=== PATIENT | male | born 1950 | race Caucasian/White ===

== ENCOUNTER → 2016-11-19 | Day surgery (SDC) | payer MEDICARE, OTHER ==
[2016-11-19] VITALS (7 sets, daily range): BP systolic 154–170; BP diastolic 73–93; PULSE 80–91; RESP 14–18; O2SAT 96–100
[~2016-11-19] VITALS: Ht 200.7 cm; Wt 101.3 kg
[~2016-11-19] MED LIST: AMMO385C5 TP; Atropine 0.4 mg/mL Inj IVPUSH PRN; Bupivacaine-MPF 0.25% 30 mL Inj INFILTRATE ONE; CeFAZolin 2 Gm/50 mL D5W Duplex Bag IV ONE; CeFAZolin 2 Gm/50 mL D5W IV Premix IV ONE; Dexamethasone 4 mg/mL Inj ONE; EPHEDrine Sulfate 50 mg/mL Inj IVPUSH PRN; HYDROmorphone 1 mg/mL Inj IVPUSH PRN; Labetalol 5 mg/mL 20 mL Inj IV PRN; Lactated Ringer's 1,000 ML IV ONE; Lactated Ringer's 1,000 ML IV SCH; Lactated Ringer's 500 ML IV PRN; METF500T4 PO; MULT-1018 PO; MetoCLOpramide 5 mg/mL 2 mL Inj IVPUSH PRN; MetoCLOpramide 5 mg/mL 2 mL Inj ONE; OXYC1TAB24 PO; Ondansetron 2 mg/mL 2 mL Inj IVPUSH PRN; Ondansetron 2 mg/mL 2 mL Inj ONE; Phenylephrine 10,000 mCg/mL Inj IVPUSH PRN; Phenylephrine/NS 100 mCg/mL 10 mL Syringe IVPUSH ONE; Propofol 10,000 mCg/mL 20 mL Inj ONE; Rocuronium 10 mg/mL 5 mL Inj ONE; fentaNYL-PF 50 mCg/mL 2 mL Inj IVPUSH PRN; fentaNYL-PF 50 mCg/mL 2 mL Inj ONE; hydrOXYzine Pamoate 25 mg Capsule PO PRN; oxyCODONE-Acetamin 5-325 mg Tablet PO PRN
[2016-11-19] MEDS: Lactated Ringer's 1,000 ML IV SCH ×2 (14:54→16:32)
--- NOTE | 2016-11-19 18:20 | PCM.HPANE ---
Patient Data Surgeon Admitting Provider: Attending Provider:Antonio Sherman DO Primary Care Physician:Jim Other Provider:Otis Finn Anesthesia Reason for Visit Fractured Clavicle Ht/WT & BMI Height (Feet): 6 Height (Inches): 7 Weight (Kilograms): 101.3 Body Mass Index 25.00 Allergies Coded Allergies: No Known Allergies (Unverified , 11/19/16) Past Anesthesia History Anesthesia History: Denies:: Abnormal Airway, Anesthesia Reactions, Difficult Intubation, Fam Anesthesia Reaction, Fam Malignant Hypertherm, Malignant Hyperthermia Diabetes History Hx Diabetes?: Yes Type of Diabetes: Type II Glycemic Control: Oral Medication Current Bedside Blood Glucose: 171 MRSA MRSA: No Medications Reported Medications Multivitamin (Multi Vitamin Daily)1 Each Tablet1 Each PO DAILY 30 Days Ref 0 11/18/16 oxyCODONE-Acetaminophen 5-325 mg 1 Each Tablet1 Tab PO Q4H PRN For Pain Ref 0 11/18/16 Metformin 500 Mg [id number] Mg PO BID Ref 0 11/18/16 Ammonium Lactate 140 Gm Cream..g.140 Gm TP DAILY 11/18/16 History History of ENT Problems?: No HEENT History: Denies:: Abnormal Airway Difficult Intubation Dysphagia Hearing Problem Sinus Problem TMJ Denture Type: None Teeth Condition: Within Normal Limits Hx of Heart Problems?: No Cardiovascular History: Denies:: AICD Abdominal Aortic Aneurism Atrial Fibrillation Cardiac Surgery Chest Pain Congestive Heart Failure Coronary Artery Disease Edema Heart Murmur Hypertension Irregular Heartbeat Pacemaker Peripheral Vascular Rheumatic Fever Thrombophlebitis Valvular Heart Disease Hx of Respiratory Problem?: No Respiratory History: Denies:: Asthma COPD Chest Surgery Cough Dyspnea Hemoptysis Pneumonia Pulmonary Embolism Tuberculosis Use of C-PAP Machine Use of Inhalers / NEBS Hx Neurologic Problems?: No Neurological History: Denies:: Alzheimer's Disease CVA Dementia Dizziness Headaches Multiple Sclerosis Parkinson's Disease Seizures TIA Hx of GI Problems?: No Other GI Pertinent History: Umbilical hernia repair Hx of Problems?: No Genitourinary History: Denies:: HX of Hemodialysis HX of Peritoneal Dialysis: No Male Hx: Positive for:: Testicular Surgery (Vasectomy) Denies:: Prostate Problems Scrotal Mass Skin History: Denies:: History Skin Disorders? Pressure Ulcers Hx Musculoskeletal Problems?: Yes Musculoskeletal History: Positive for:: Musculoskeletal Trauma (fall off ladder 11/18/16 fx clavicle) Denies:: Back Injury Degenerative Joint Fibromyalgia Joint Replacement Osteoarthritis Hx of Psycho/Social Problems?: No Hx Surgeries?: No Other History: Positive for:: Hospitalization ([facility] while skiing 40 yrs ago no residule) Denies:: Cancer Endocrine Disease Thyroid Disease History Blood Transfusions: Positive for:: Accept Blood Products? Denies:: Blood Transfusions Hx Diabetes: YesBedside Blood Glucose: 171 Hx Alcohol Use: YesAlcoholic Drinks Per Day: 3-4 glasses a wine a dayHx Substance Use: No Stop/Bang S-Snoring: Do You Snore Loudly: No T-Tired: feel tired, fatigued: No O-Obsered: Observed not breath: No P-Blood Pressure: treated: No B- Body Mass Index > 35 kg/m2: No A- Age over 50: Yes N- Neck Large Circumference: No G- Gender Male: Yes UMER Total Score: 2 Risk Assessment Category Category 1A: Patient has history of documented sleep apnea, and HAS NOT received any narcotic, sedative or anesthesia administration during this stay. Category 1B: Patient has history of documented sleep apnea, and HAS received any narcotic , sedative or anesthesia administration during this stay Category 2: Patient has SUSPECTED Obstructive Sleep Apnea, and HAS received any narcotic , sedative or anesthesia administration during this stay. Category 3: Patient has SUSPECTED Obstructive Sleep Apnea and HAS NOT received narcotic, sedative or anesthesia administration during this stay. Category 4: Outpatient in Procedural Areas with known sleep apnea or who screen positive for High Risk via the STOP/BANG questionnaire. Exam Exam Vital Signs Vital Signs Date Time Temp Pulse Resp B/P Pulse Ox O2 Delivery O2 Flow Rate FiO2 11/19/16 14:30 36.3 80 15 159/73 98 Room Air General Appearance: Alert, Oriented X3, Cooperative, No Acute Distress HEENT/AIRWAY: MP 2, Neck Movement (F), Mouth Opening (3 FBMO) Lungs: Clear to Auscultation, Normal Air Movement Heart: Exam Unremarkable, Regular Rate/Rhythm, No Murmurs/Rubs/Gallops Meds/Labs/Diagnostics Admission Meds Current Medications Lactated Ringer's (Lr) 1,000 ml @ 80 mls/hr [id number] IV Last administered on t 14:54; Start 11/19/16 at 13:50 Bedside Blood Glucose: 171 Plan Impression Patient chart reviewed, patient interviewed and anesthestic plan with risks, benefits, and alternatives discussed, and informed consent obtained. NPO per Anesth. Guidelines: Yes ASA Physical Status: ASA2 Mod Systemic Disease Anesthetic Plan: GA, Regional Block (left interscalene block discussed with associated risks - see record. AQA. Consent signed.) Bene/Risks/Altern/Consents: Yes HP Complete Prior to Induction: Yes Antonio Franklin MD Nov 19, 2016 15:45
--- NOTE | 2016-11-19 19:12 | PCM.ANEP1 ---
Post Anesthesia PACU Phase 1 Assessment Vital Signs Vital Signs Date Time Temp Pulse Resp B/P Pulse Ox O2 Delivery O2 Flow Rate FiO2 11/19/16 14:30 36.3 80 15 159/73 98 Room Air Anesthetic Administered: GA, Regional Block (LEFT SHOULDER BLOCK) Level of Alertness: Awake, talking MUHAMMAD's with Equal Strength: Yes Pain: No Nausea or Vomiting: No CV Function & Hydration Stable: Yes Airway Device: N/A Oxygen Delivery: Simple Mask Lungs: Clear to Auscultation, Normal Air Movement Dermatome Level: Full Sensation PACU Phase 2 Assessment Complications: No Follow up Care: N/A Patient Instructions Provided: N/A Antonio Franklin MD Nov 19, 2016 19:12
--- NOTE | 2016-11-19 19:47 | OP ---
[address] [address] OPERATIVE REPORT PATIENT: ALEAH YOUNGER : 1950 MR#: [id number] ADMIT: 11/19/2016 JOB ID: [id number] DATE OF SURGERY: 11/19/2016 PREOPERATIVE DIAGNOSIS(ES): Left distal clavicle fracture with acromioclavicular (AC) joint disruption. POSTOPERATIVE DIAGNOSIS(ES): Left distal clavicle fracture with acromioclavicular (AC) joint disruption. PROCEDURE: Left distal clavicle open reduction and internal fixation with acromioclavicular joint reconstruction. SURGEON: Antonio Sherman DO [employer] AGENT: Christina Ventura PA-C INDICATION: The patient is a 66-year-old male who fell about five feet when he missed a step on a ladder, sustaining a left comminuted distal clavicle fracture with AC disruption. We discussed treatment options for this and he wished to proceed with open reduction, internal fixation, and AC reconstruction. We discussed the risks, benefits, and possible complications of surgery. All questions were answered and he wished to proceed. PROCEDURE IN DETAIL: The patient is brought to the operating room. He was given a regional block as well as general anesthetic. He was placed comfortably into the beach chair position. The left shoulder was sterilely prepped and draped. An incision was made over the distal clavicle extending to the AC joint. Dissection was carefully carried through subcutaneous tissue. Electrocautery was used for hemostasis. This was carried down onto the superior clavicle and the fracture was encountered. He was noted to have a fair amount of comminution in the distal clavicle fracture. The wound was irrigated and I then applied an Arthrex distal clavicle locking plate to the superior clavicle, bent this appropriately to match his anatomy, and then secured it with a K-wire. I confirmed reduction and placement of the plate and then added a 2.5 cortex screw to the superior clavicle, added 2 additional cortex screws to the superior clavicle on the medial aspect, and then used the 3.0 for a guide for the dog bone to affect the AC joint reconstruction. This was under fluoroscopic guidance. This was advanced across 2 cortices in the clavicle and across 2 cortices in the coracoid to the base of the coracoid. Next, the wire was advanced down through the cannulated drill and this was retrieved on the undersurface of the coracoid using a right angle. Sutures for the dog bone were then shuttled back up through the clavicle and the dog bone was then shuttled down onto the inferior coracoid, yielding excellent fixation of the acromioclavicular joint. The dog bone unfortunately did not sit flat on the coracoid as it was exiting at the base and had somewhat of an odd angle. I attempted to manipulate this with a right angle and nitinol wire, however I could not get it to change and it seemed to be giving very good fixation in any event, and was firmly onto bone when I checked in multiple views with fluoroscopy, and therefore I accepted this position, provisionally tightened to the fiber tape sutures over the grommet in the plate to reduce the fracture, and then pinned the distal clavicle fracture provisionally and added three locking screws. I could not get two additional locking screws as they were within the fracture site, but I felt that the fixation was adequate, and the fiber tapes were then tied over the grommet in the Arthrex distal clavicle locking plate yielding excellent reduction and fixation. The wound was then irrigated and closed with 2-0 Vicryl to close the fascia and subcu was closed with 2-0 and 3-0 Vicryl. The skin was closed with a running subcuticular 4-0 Monocryl. Marcaine was added as an adjunct local anesthetic. Sterile dressings were applied. The patient tolerated the procedure well. BLOOD LOSS: 25 mL POSTOPERATIVE PROTOCOL: Will have the patient maintain the sling at all times except showering for six weeks, sleep sitting up in a bed, and he was given a prescription for Percocet 7.5/325, which was given to him preoperatively. I will have him follow back up in the clinic in two weeks for a wound check and then in 5-6 weeks with myself with x-rays.
== END | disposition home or self-care (01) ==
LOC: SAS 14:11
PROVIDERS: ATTEND Orthopaedic Surgery
DX: S42.032A Displaced fracture of lateral end of left clavicle, initial encounter for closed fracture (principal); S43.52XA Sprain of left acromioclavicular joint, initial encounter; W11.XXXA Fall on and from ladder, initial encounter; Y93.9 Activity, unspecified; Y92.814 Boat as the place of occurrence of the external cause; Y99.8 Other external cause status
CPT/HCPCS: 23515; 23550; 76001; 76942; C1713; G0463; J0690; J1100; J2370; J2405; J2704; J2765; J3010; J7120